=== PATIENT | male | born 1960 | race Caucasian/White ===

== ENCOUNTER 2019-09-05 11:57 | Emergency (ER) | payer OTHER ==
[~2019-09-05] VITALS: Ht 198.1 cm; Wt 153.3 kg
[2019-09-05 11:58] VITALS: BP 154/73
== END 2019-09-05 15:15 | disposition home or self-care (01) ==
LOC: ED 11:57
DX: I82.622 Acute embolism and thrombosis of deep veins of left upper extremity (principal); I10 Essential (primary) hypertension; E11.9 Type 2 diabetes mellitus without complications; Z86.718 Personal history of other venous thrombosis and embolism; Z88.8 Allergy status to other drugs, medicaments and biological substances; Z88.5 Allergy status to narcotic agent; Z88.6 Allergy status to analgesic agent

== ENCOUNTER 2021-03-13 13:42 | Inpatient (IN) | payer OTHER ==
[~2021-03-13] VITALS: Ht 198.1 cm; Wt 163.1 kg
[2021-03-13 13:52] VITALS: BP 157/90
[2021-03-13 14:18] LABS: BASO % 0.3 % (0.0-1.0); EOS # 0.1 10*3/uL (0.0-0.4); HEMATOCRIT 46.5 % (42.0-52.0); LYMPH # 1.4 10*3/uL (1.3-4.4); LYMPH % 10.8 % (27.0-41.0); MEAN CELL VOLUME 92.3 fl (80.0-94.0); MEAN CORPUSCULAR HGB 30.8 pg (27.0-31.0); MEAN CORPUSCULAR HGB CONC 33.3 g/dl (33.0-37.0); NEUT # 9.9 10*3/uL (2.3-7.9); NEUT % 79.4 % (47.0-73.0); PLATELET COUNT AUTOMATED 185 10*3/uL (130-400); RED BLOOD COUNT 5.04 10*6/uL (4.50-5.90); RED CELL DISTRI WIDTH 13.9 % (0-14.5); WHITE BLOOD COUNT 12.5 10*3/uL (4.8-10.8)
[2021-03-13 14:37] LABS: ALBUMIN 3.2 gm/dl (3.1-4.5); ALKALINE PHOSPHATASE 89 U/L (45-117); BUN 10 mg/dl (7-24); CHLORIDE 109 mmol/L (98-107); CREATININE 0.73 mg/dL (0.70-1.30); POTASSIUM 3.8 mmol/L (3.5-5.1); SGOT/AST 6 IU/L (3-35); SODIUM 139 mmol/L (136-145); TOTAL PROTEIN 6.7 gm/dL (6.4-8.2)
[2021-03-13 14:42] LABS: SGPT/ALT 18 U/L (12-78); TROPONIN I < 0.015 ng/ml (<0.045)
[2021-03-13] MEDS ORDERED: GLUCOPHAGE1000 MG PO (17:28)
[2021-03-13] MEDS ORDERED: FISH OIL 1,0001 EAC2 PO (17:30)
[2021-03-13] MEDS ORDERED: CELEBREX400 M1 PO (17:30)
[2021-03-13 17:40] VITALS: BP 154/88
[2021-03-13 20:00] VITALS: BP 127/81
[2021-03-13] MEDS ORDERED: CYMBALTA60 MG PO (22:15)
[2021-03-13] MEDS ORDERED: ZESTORETIC 20-1 EACH PO (22:16)
[2021-03-13] MEDS ORDERED: CLARITIN10 MG PO (22:17)
[2021-03-13] MEDS ORDERED: VITAMIN D350 MCG PO (22:17)
[2021-03-14] VITALS: BP 136/75
[2021-03-14 06:43] LABS: BASO # 0.1 10*3/uL (0.0-0.1); BASO % 0.6 % (0.0-1.0); EOS # 0.3 10*3/uL (0.0-0.4); EOS % 2.5 % (1.0-4.0); HEMATOCRIT 46.1 % (42.0-52.0); LYMPH # 2.2 10*3/uL (1.3-4.4); MEAN CELL VOLUME 92.9 fl (80.0-94.0); MEAN CORPUSCULAR HGB 30.8 pg (27.0-31.0); MEAN CORPUSCULAR HGB CONC 33.2 g/dl (33.0-37.0); MEAN PLATELET VOLUME 10.6 fl (9.6-12.3); MONO # 1.3 10*3/uL (0.1-1.0); MONO % 11.6 % (3.0-9.0); NEUT # 7.4 10*3/uL (2.3-7.9); NEUT % 65.5 % (47.0-73.0); PLATELET COUNT AUTOMATED 177 10*3/uL (130-400); RED BLOOD COUNT 4.96 10*6/uL (4.50-5.90); WHITE BLOOD COUNT 11.3 10*3/uL (4.8-10.8)
[2021-03-14 06:46] LABS: BUN 12 mg/dl (7-24); CHLORIDE 107 mmol/L (98-107); POTASSIUM 3.6 mmol/L (3.5-5.1); SODIUM 139 mmol/L (136-145)
[2021-03-14 06:59] LABS: CHOLESTEROL 91 mg/dL (<200); CREATININE 0.73 mg/dL (0.70-1.30); LDL CHOLESTEROL 43 mg/dL (9-159); TRIGLYCERIDES 105 mg/dl (<150)
[2021-03-14 07:59] LABS: VITAMIN D, 25-HYDROXY 32.8 ng/mL (30-100)
[2021-03-14 08:15] VITALS: BP 102/57
[2021-03-14 12:00] VITALS: BP 108/69
[2021-03-14] MEDS ORDERED: LISINOPRIL5 MG PO (15:02)
[2021-03-14] MEDS ORDERED: LOPRESSOR25 MG PO (15:02)
[2021-03-14] MEDS ORDERED: XARE20MG PO (15:02)
== END 2021-03-14 16:18 | disposition home or self-care (01) | DRG 308 ==
LOC: ED 13:42 → 5E 15:43 → EDHOLD 15:43 → 5E 16:35
PROVIDERS: Emergency Medicine; Internal Medicine; ADMIT Family Medicine; ATTEND Family Medicine
PROC: 4A02XM4 Measurement of Cardiac Total Activity, External Approach (ICD-10-PCS; principal; 2021-03-14)
PROC: 3E073KZ Introduction of Other Diagnostic Substance into Coronary Artery, Percutaneous Approach (ICD-10-PCS; 2021-03-14)
DX: I48.91 Unspecified atrial fibrillation (principal); I26.99 Other pulmonary embolism without acute cor pulmonale; R65.11 Systemic inflammatory response syndrome (SIRS) of non-infectious origin with acute organ dysfunction; Z68.41 Body mass index [BMI] 40.0-44.9, adult; E66.01 Morbid (severe) obesity due to excess calories; E11.65 Type 2 diabetes mellitus with hyperglycemia; Z88.6 Allergy status to analgesic agent; Z88.8 Allergy status to other drugs, medicaments and biological substances; Z82.49 Family history of ischemic heart disease and other diseases of the circulatory system; Z79.82 Long term (current) use of aspirin; Z79.899 Other long term (current) drug therapy; Z86.718 Personal history of other venous thrombosis and embolism; Z81.8 Family history of other mental and behavioral disorders

== ENCOUNTER 2021-03-31 02:22 | Emergency (ER) | payer OTHER ==
[~2021-03-31] VITALS: Wt 163.3 kg
[~2021-03-31 02:22] MED LIST: CELEBREX400 M1 PO; CLARITIN10 MG PO; CYMBALTA60 MG PO; FISH OIL 1,0001 EAC2 PO; GLUCOPHAGE1000 MG PO; LISINOPRIL5 MG PO; LOPRESSOR25 MG PO; VITAMIN D350 MCG PO; XARE20MG PO; ZESTORETIC 20-1 EACH PO
[2021-03-31] MEDS ORDERED: PREDNISONE20 M1 PO (03:11)
[2021-03-31 03:23] VITALS: BP 155/100
== END 2021-03-31 03:41 | disposition home or self-care (01) ==
LOC: ED 02:22
DX: M19.132 Post-traumatic osteoarthritis, left wrist (principal); T14.90XS Injury, unspecified, sequela; F17.200 Nicotine dependence, unspecified, uncomplicated; Z88.8 Allergy status to other drugs, medicaments and biological substances; Z79.899 Other long term (current) drug therapy; Z98.890 Other specified postprocedural states; Z88.6 Allergy status to analgesic agent; X58.XXXS Exposure to other specified factors, sequela

== ENCOUNTER 2021-08-02 05:23 | Emergency (ER) | payer OTHER ==
[~2021-08-02 05:23] MED LIST changes: +PREDNISONE20 M1 PO
[2021-08-02 05:38] VITALS: BP 95/61
== END 2021-08-02 05:52 | disposition home or self-care (01) ==
LOC: ED 05:23
DX: M19.031 Primary osteoarthritis, right wrist (principal); Z88.8 Allergy status to other drugs, medicaments and biological substances; Z79.899 Other long term (current) drug therapy

== ENCOUNTER 2022-08-25 14:43 | Emergency (ER) | payer MEDICARE ==
[~2022-08-25] VITALS: Wt 149.7 kg
[~2022-08-25 14:43] MED LIST changes: +TAMIFLU 75MG CA75 MG PO; +UNASYN 3 GM VIAL3 GM IV
[2022-08-25 14:52] VITALS: BP 136/89
[2022-08-25] MEDS ORDERED: PREDNISONE20 M1 PO (17:59)
== END 2022-08-25 18:16 | disposition home or self-care (01) ==
LOC: ED 14:43
DX: M12.532 Traumatic arthropathy, left wrist (principal); Z88.8 Allergy status to other drugs, medicaments and biological substances; Z98.890 Other specified postprocedural states; F17.200 Nicotine dependence, unspecified, uncomplicated; F10.20 Alcohol dependence, uncomplicated

== ENCOUNTER → 2023-01-07 | Day surgery (SDC) | payer OTHER ==
[~2023-01-07] VITALS: Ht 198.1 cm; Wt 149.7 kg
[2023-01-07 08:26] VITALS: BP 113/89
[2023-01-07 09:32] VITALS: BP 133/67
[2023-01-07 09:47] VITALS: BP 122/55
[2023-01-07 10:01] VITALS: BP 121/63
[2023-01-07 14:29] VITALS: BP 133/67
== END | disposition home or self-care (01) ==
LOC: SDC 01-05 08:00
PROVIDERS: ATTEND Surgery
DX: Z12.11 Encounter for screening for malignant neoplasm of colon (principal); K57.30 Diverticulosis of large intestine without perforation or abscess without bleeding; K29.50 Unspecified chronic gastritis without bleeding; K21.9 Gastro-esophageal reflux disease without esophagitis; I10 Essential (primary) hypertension; E11.9 Type 2 diabetes mellitus without complications; F17.210 Nicotine dependence, cigarettes, uncomplicated; E78.00 Pure hypercholesterolemia, unspecified; Z79.899 Other long term (current) drug therapy

== ENCOUNTER 2023-02-16 14:10 | Inpatient (IN) | payer OTHER ==
[~2023-02-16] VITALS: Ht 198.1 cm; Wt 152.5 kg
[~2023-02-16 14:10] MED LIST changes: +ATORVASTATIN CA40 M1 PO; +LANTUS SOL100 UNIT/1 SQ; +NOVOLOG100 UNIT/1 SQ; +OZEMPIC2 MG/0.71 SQ; +TORSEMIDE20 MG PO
[2023-02-16 14:17] VITALS: BP 96/61
[2023-02-16 14:56] LABS: BASO # 0.1 10*3/uL (0.0-0.1); BASO % 0.4 % (0.0-1.0); EOS # 0.1 10*3/uL (0.0-0.4); EOS % 0.6 % (1.0-4.0); HEMATOCRIT 50.3 % (42.0-52.0); LYMPH # 2.3 10*3/uL (1.3-4.4); LYMPH % 11.1 % (27.0-41.0); MEAN CELL VOLUME 89.3 fl (80.0-94.0); MEAN CORPUSCULAR HGB 31.1 pg (27.0-31.0); MEAN CORPUSCULAR HGB CONC 34.8 g/dl (33.0-37.0); MONO # 1.2 10*3/uL (0.1-1.0); MONO % 5.7 % (3.0-9.0); NEUT # 16.8 10*3/uL (2.3-7.9); NEUT % 81.6 % (47.0-73.0); PLATELET COUNT AUTOMATED 258 10*3/uL (130-400); RED BLOOD COUNT 5.63 10*6/uL (4.50-5.90); RED CELL DISTRI WIDTH 13.1 % (0-14.5); WHITE BLOOD COUNT 20.5 10*3/uL (4.8-10.8)
[2023-02-16 15:07] LABS: ACT PARTIAL THROMBO TIME 26.8 SECONDS (20.0-32.1)
[2023-02-16 15:19] LABS: ALKALINE PHOSPHATASE 83 U/L (46-116); BUN 17 mg/dl (9-23); CHLORIDE 100 mmol/L (98-107); LIPASE 33 U/L (12-53); POTASSIUM 3.3 mmol/L (3.4-5.1); SGPT/ALT 12 U/L (10-49); TOTAL PROTEIN 7.4 gm/dL (6.0-8.0)
[2023-02-16 17:00] VITALS: BP 92/61
[2023-02-16 18:05] VITALS: BP 107/62
[2023-02-16 20:16] VITALS: BP 110/73
[2023-02-17] VITALS (11 sets, daily range): BP systolic 98–139; BP diastolic 47–87
[2023-02-17 05:37] LABS: ALKALINE PHOSPHATASE 70 U/L (46-116); BUN 14 mg/dl (9-23); CHLORIDE 108 mmol/L (98-107); CHOLESTEROL 83 mg/dL (<200); LDL CHOLESTEROL 36 mg/dL (9-159); POTASSIUM 3.1 mmol/L (3.4-5.1); TOTAL PROTEIN 5.8 gm/dL (6.0-8.0); TRIGLYCERIDES 133 mg/dl (<150)
[2023-02-17 06:01] LABS: SGPT/ALT < 7 U/L (10-49)
[2023-02-17 06:26] LABS: BASO # 0.1 10*3/uL (0.0-0.1); BASO % 0.5 % (0.0-1.0); EOS # 0.2 10*3/uL (0.0-0.4); EOS % 1.5 % (1.0-4.0); HEMATOCRIT 42.2 % (42.0-52.0); LYMPH # 2.9 10*3/uL (1.3-4.4); LYMPH % 17.5 % (27.0-41.0); MEAN CELL VOLUME 91.7 fl (80.0-94.0); MEAN CORPUSCULAR HGB CONC 34.8 g/dl (33.0-37.0); MEAN PLATELET VOLUME 10.6 fl (9.6-12.3); MONO # 1.3 10*3/uL (0.1-1.0); NEUT # 11.8 10*3/uL (2.3-7.9); NEUT % 71.7 % (47.0-73.0); PLATELET COUNT AUTOMATED 209 10*3/uL (130-400); RED CELL DISTRI WIDTH 13.2 % (0-14.5); WHITE BLOOD COUNT 16.4 10*3/uL (4.8-10.8)
[2023-02-18] VITALS: BP 103/67
[2023-02-18 04:00] VITALS: BP 152/88
[2023-02-18 07:35] LABS: BASO % 0.3 % (0.0-1.0); EOS # 0.1 10*3/uL (0.0-0.4); EOS % 0.5 % (1.0-4.0); HEMATOCRIT 39.5 % (42.0-52.0); LYMPH # 1.8 10*3/uL (1.3-4.4); LYMPH % 11.5 % (27.0-41.0); MEAN CELL VOLUME 90.6 fl (80.0-94.0); MEAN CORPUSCULAR HGB 31.7 pg (27.0-31.0); MEAN CORPUSCULAR HGB CONC 34.9 g/dl (33.0-37.0); MONO # 0.9 10*3/uL (0.1-1.0); MONO % 5.8 % (3.0-9.0); NEUT # 12.8 10*3/uL (2.3-7.9); NEUT % 81.5 % (47.0-73.0); PLATELET COUNT AUTOMATED 198 10*3/uL (130-400); RED BLOOD COUNT 4.36 10*6/uL (4.50-5.90); WHITE BLOOD COUNT 15.8 10*3/uL (4.8-10.8)
[2023-02-18 08:00] VITALS: BP 105/63
[2023-02-18 08:01] LABS: BUN 11 mg/dl (9-23); CHLORIDE 107 mmol/L (98-107); POTASSIUM 3.6 mmol/L (3.4-5.1)
[2023-02-18 09:07] LABS: ACID FAST SPEC PROCESSING Tissue Grinding (.)
[2023-02-18 12:00] VITALS: BP 133/63
[2023-02-18 16:00] VITALS: BP 151/71
[2023-02-18 20:00] VITALS: BP 152/79
[2023-02-19] VITALS: BP 133/78
[2023-02-19 06:10] LABS: BASO # 0.1 10*3/uL (0.0-0.1); BASO % 0.4 % (0.0-1.0); EOS # 0.2 10*3/uL (0.0-0.4); EOS % 1.6 % (1.0-4.0); HEMATOCRIT 38.8 % (42.0-52.0); LYMPH # 2.7 10*3/uL (1.3-4.4); MEAN CELL VOLUME 90.9 fl (80.0-94.0); MEAN CORPUSCULAR HGB 31.9 pg (27.0-31.0); MEAN CORPUSCULAR HGB CONC 35.1 g/dl (33.0-37.0); MEAN PLATELET VOLUME 10.4 fl (9.6-12.3); MONO % 7.5 % (3.0-9.0); NEUT # 9.5 10*3/uL (2.3-7.9); NEUT % 70.1 % (47.0-73.0); PLATELET COUNT AUTOMATED 206 10*3/uL (130-400); RED BLOOD COUNT 4.27 10*6/uL (4.50-5.90); WHITE BLOOD COUNT 13.5 10*3/uL (4.8-10.8)
[2023-02-19 07:40] LABS: BUN 10 mg/dl (9-23); CHLORIDE 107 mmol/L (98-107); POTASSIUM 3.5 mmol/L (3.4-5.1)
[2023-02-19 08:00] VITALS: BP 124/91
[2023-02-19 12:00] VITALS: BP 160/90
[2023-02-19] MEDS ORDERED: METRONIDAZOLE500 M1 PO (12:01)
[2023-02-19] MEDS ORDERED: SEPTDS PO (12:01)
[2023-02-19] MEDS ORDERED: MAGNESIUM OXID400 MG PO (12:08)
[2023-02-19] MEDS ORDERED: HYDROCODONE-AC1 EAC1 PO (12:08)
[2023-02-19] MEDS ORDERED: LOPRESSOR25 MG PO (12:08)
== END 2023-02-19 12:58 | disposition home or self-care (01) | DRG 854 ==
LOC: ED 14:10 → EDHOLD 17:43 → 4E 17:43 → ICCU 02-17 13:13 → 4E 02-18 07:33
PROVIDERS: Emergency Medicine; Internal Medicine; Registered Nurse; Surgery; ADMIT Family Medicine; ATTEND Family Medicine
PROC: 0D9P0ZZ Drainage of Rectum, Open Approach (ICD-10-PCS; principal; 2023-02-17)
PROC: 5A09357 Assistance with Respiratory Ventilation, Less than 24 Consecutive Hours, Continuous Positive Airway Pressure (ICD-10-PCS; 2023-02-18)
DX: A41.9 Sepsis, unspecified organism (principal); E87.20 Acidosis, unspecified; K61.1 Rectal abscess; I50.32 Chronic diastolic (congestive) heart failure; R65.20 Severe sepsis without septic shock; E83.42 Hypomagnesemia; I48.91 Unspecified atrial fibrillation; I95.9 Hypotension, unspecified; E11.65 Type 2 diabetes mellitus with hyperglycemia; E78.5 Hyperlipidemia, unspecified; E87.6 Hypokalemia; Z88.5 Allergy status to narcotic agent; Z88.8 Allergy status to other drugs, medicaments and biological substances; Z79.4 Long term (current) use of insulin; Z82.0 Family history of epilepsy and other diseases of the nervous system; Z79.84 Long term (current) use of oral hypoglycemic drugs; Z79.899 Other long term (current) drug therapy

== ENCOUNTER → 2023-03-05 | Outpatient (CLI) | payer OTHER ==
[~2023-03-05] MED LIST changes: +HYDROCODONE-AC1 EAC1 PO; +MAGNESIUM OXID400 MG PO; +METRONIDAZOLE500 M1 PO; +SEPTDS PO
== END | disposition home or self-care (01) ==
LOC: WOUNDCARE 00:23
PROVIDERS: ATTEND Nurse Practitioner Family
DX: T81.89XD Other complications of procedures, not elsewhere classified, subsequent encounter (principal); K61.1 Rectal abscess; E11.65 Type 2 diabetes mellitus with hyperglycemia; I48.91 Unspecified atrial fibrillation; I11.0 Hypertensive heart disease with heart failure; I50.9 Heart failure, unspecified; E78.5 Hyperlipidemia, unspecified; F17.290 Nicotine dependence, other tobacco product, uncomplicated; Z86.718 Personal history of other venous thrombosis and embolism; Z86.711 Personal history of pulmonary embolism; Y83.8 Other surgical procedures as the cause of abnormal reaction of the patient, or of later complication, without mention of misadventure at the time of the procedure

== ENCOUNTER → 2023-03-10 | Outpatient (CLI) | payer OTHER | END | disposition home or self-care (01) | LOC: WOUNDCARE 01:41 | PROVIDERS: ATTEND Nurse Practitioner Primary Care | DX: T81.89XD Other complications of procedures, not elsewhere classified, subsequent encounter (principal); K61.1 Rectal abscess; E11.65 Type 2 diabetes mellitus with hyperglycemia; E78.5 Hyperlipidemia, unspecified; I48.91 Unspecified atrial fibrillation; I11.0 Hypertensive heart disease with heart failure; I50.9 Heart failure, unspecified; F17.290 Nicotine dependence, other tobacco product, uncomplicated; Z86.718 Personal history of other venous thrombosis and embolism; Z86.711 Personal history of pulmonary embolism; Y83.8 Other surgical procedures as the cause of abnormal reaction of the patient, or of later complication, without mention of misadventure at the time of the procedure ==

== ENCOUNTER 2023-03-16 15:41 | Inpatient (IN) | payer OTHER ==
[~2023-03-16] VITALS: Ht 198.1 cm; Wt 145.2 kg
[~2023-03-16 15:41] MED LIST changes: -CIPROFLOXACIN250 MG PO; -HYDROCODONE-AC1 EACH PO
[2023-03-16 16:08] VITALS: BP 100/60
[2023-03-16 17:08] LABS: BASO % 0.4 % (0.0-1.0); EOS # 0.1 10*3/uL (0.0-0.4); EOS % 0.8 % (1.0-4.0); HEMATOCRIT 46.3 % (42.0-52.0); LYMPH # 1.1 10*3/uL (1.3-4.4); LYMPH % 10.2 % (27.0-41.0); MEAN CELL VOLUME 88.7 fl (80.0-94.0); MEAN CORPUSCULAR HGB CONC 36.1 g/dl (33.0-37.0); MEAN PLATELET VOLUME 9.8 fl (9.6-12.3); MONO # 0.9 10*3/uL (0.1-1.0); MONO % 8.4 % (3.0-9.0); NEUT # 8.7 10*3/uL (2.3-7.9); NEUT % 79.7 % (47.0-73.0); PLATELET COUNT AUTOMATED 197 10*3/uL (130-400); RED BLOOD COUNT 5.22 10*6/uL (4.50-5.90); WHITE BLOOD COUNT 10.9 10*3/uL (4.8-10.8)
[2023-03-16 17:20] LABS: BILIRUBIN 2+ (Negative); BLOOD 3+ (Negative); CLARITY Turbid (Clear); COLOR Orange (Yellow); GLUCOSE Trace (Negative); KETONE Trace (Negative); LEUKO ESTERASE 2+ (Negative); NITRITE Positive (Negative); SPECIFIC GRAVITY 1.025 (1.001-1.030)
[2023-03-16 17:28] LABS: WBC TNTC wbc/hpf (0-5)
[2023-03-16 17:29] LABS: BACTERIA 3+
[2023-03-16 17:29] LABS: ALKALINE PHOSPHATASE 76 U/L (46-116); BUN 11 mg/dl (9-23); CHLORIDE 102 mmol/L (98-107); POTASSIUM 3.1 mmol/L (3.4-5.1); SGPT/ALT 11 U/L (10-49); TOTAL PROTEIN 6.8 gm/dL (6.0-8.0)
[2023-03-16 19:48] VITALS: BP 124/98
[2023-03-16 20:52] VITALS: BP 94/65
[2023-03-16 21:53] VITALS: BP 103/61
[2023-03-16 22:15] VITALS: BP 111/67
[2023-03-16] MEDS ORDERED: HYDROCODONE-AC1 EACH PO (22:32)
[2023-03-17 06:36] LABS: BASO # 0.1 10*3/uL (0.0-0.1); BASO % 0.5 % (0.0-1.0); EOS # 0.3 10*3/uL (0.0-0.4); EOS % 2.8 % (1.0-4.0); HEMATOCRIT 44.3 % (42.0-52.0); LYMPH # 2.2 10*3/uL (1.3-4.4); LYMPH % 23.5 % (27.0-41.0); MEAN CELL VOLUME 91.3 fl (80.0-94.0); MEAN CORPUSCULAR HGB 31.8 pg (27.0-31.0); MEAN CORPUSCULAR HGB CONC 34.8 g/dl (33.0-37.0); MEAN PLATELET VOLUME 9.6 fl (9.6-12.3); MONO # 1.1 10*3/uL (0.1-1.0); MONO % 11.5 % (3.0-9.0); NEUT # 5.8 10*3/uL (2.3-7.9); NEUT % 61.2 % (47.0-73.0); PLATELET COUNT AUTOMATED 193 10*3/uL (130-400); RED BLOOD COUNT 4.85 10*6/uL (4.50-5.90); RED CELL DISTRI WIDTH 14.2 % (0-14.5); WHITE BLOOD COUNT 9.4 10*3/uL (4.8-10.8)
[2023-03-17 06:47] LABS: ACT PARTIAL THROMBO TIME 27.1 SECONDS (20.0-32.1)
[2023-03-17 06:54] LABS: ALKALINE PHOSPHATASE 70 U/L (46-116); BUN 11 mg/dl (9-23); CHLORIDE 101 mmol/L (98-107); CHOLESTEROL 103 mg/dL (<200); FREE T4 1.08 ng/dl (0.89-1.76); POTASSIUM 3.5 mmol/L (3.4-5.1); SGPT/ALT 11 U/L (10-49); TOTAL PROTEIN 6.4 gm/dL (6.0-8.0); TRIGLYCERIDES 160 mg/dl (<150)
[2023-03-17 06:56] LABS: LDL CHOLESTEROL 55 mg/dL (9-159)
[2023-03-17 07:19] LABS: VITAMIN D, 25-HYDROXY 38.9 ng/mL (30-100)
[2023-03-17 08:00] VITALS: BP 114/71
[2023-03-17 12:00] VITALS: BP 110/64
[2023-03-17 16:00] VITALS: BP 135/56
[2023-03-17 20:00] VITALS: BP 142/61
[2023-03-18] VITALS: BP 123/76
[2023-03-18 06:19] LABS: BASO # 0.1 10*3/uL (0.0-0.1); BASO % 0.6 % (0.0-1.0); EOS # 0.2 10*3/uL (0.0-0.4); EOS % 2.3 % (1.0-4.0); HEMATOCRIT 42.9 % (42.0-52.0); LYMPH # 2.7 10*3/uL (1.3-4.4); MEAN CELL VOLUME 92.1 fl (80.0-94.0); MEAN CORPUSCULAR HGB 31.8 pg (27.0-31.0); MEAN CORPUSCULAR HGB CONC 34.5 g/dl (33.0-37.0); MEAN PLATELET VOLUME 9.8 fl (9.6-12.3); MONO % 10.4 % (3.0-9.0); NEUT # 5.6 10*3/uL (2.3-7.9); NEUT % 58.1 % (47.0-73.0); PLATELET COUNT AUTOMATED 202 10*3/uL (130-400); RED BLOOD COUNT 4.66 10*6/uL (4.50-5.90); RED CELL DISTRI WIDTH 13.8 % (0-14.5); WHITE BLOOD COUNT 9.6 10*3/uL (4.8-10.8)
[2023-03-18 06:32] LABS: BUN 11 mg/dl (9-23); CHLORIDE 103 mmol/L (98-107); POTASSIUM 4.2 mmol/L (3.4-5.1)
[2023-03-18 08:00] VITALS: BP 116/71
[2023-03-18 16:00] VITALS: BP 138/62
[2023-03-18 20:00] VITALS: BP 111/70
[2023-03-19] VITALS: BP 122/61
[2023-03-19 06:15] LABS: BASO # 0.1 10*3/uL (0.0-0.1); BASO % 0.6 % (0.0-1.0); EOS # 0.2 10*3/uL (0.0-0.4); HEMATOCRIT 42.9 % (42.0-52.0); LYMPH # 2.2 10*3/uL (1.3-4.4); LYMPH % 24.9 % (27.0-41.0); MEAN CELL VOLUME 89.6 fl (80.0-94.0); MEAN CORPUSCULAR HGB 32.2 pg (27.0-31.0); MEAN CORPUSCULAR HGB CONC 35.9 g/dl (33.0-37.0); MEAN PLATELET VOLUME 9.5 fl (9.6-12.3); MONO # 0.6 10*3/uL (0.1-1.0); NEUT # 5.8 10*3/uL (2.3-7.9); NEUT % 64.9 % (47.0-73.0); PLATELET COUNT AUTOMATED 196 10*3/uL (130-400); RED BLOOD COUNT 4.79 10*6/uL (4.50-5.90); RED CELL DISTRI WIDTH 13.3 % (0-14.5)
[2023-03-19 06:36] LABS: BUN 9 mg/dl (9-23); CHLORIDE 105 mmol/L (98-107); POTASSIUM 4.3 mmol/L (3.4-5.1)
[2023-03-19 08:00] VITALS: BP 144/77
[2023-03-19] MEDS ORDERED: LANTUS SOL100 UNIT/1 SQ (11:21)
[2023-03-19] MEDS ORDERED: CIPROFLOXACIN250 MG PO (11:23)
[2023-03-19 12:00] VITALS: BP 151/60
== END 2023-03-19 12:21 | disposition home or self-care (01) | DRG 312 ==
LOC: ED 15:41 → 4E 19:53 → EDHOLD 19:53 → 4E 21:26
PROVIDERS: Internal Medicine; Student in an Organized Health Care Education/Training Program; ADMIT Internal Medicine; ATTEND Internal Medicine
DX: I95.1 Orthostatic hypotension (principal); N39.0 Urinary tract infection, site not specified; E44.0 Moderate protein-calorie malnutrition; K61.1 Rectal abscess; I50.22 Chronic systolic (congestive) heart failure; E87.6 Hypokalemia; E83.42 Hypomagnesemia; E78.2 Mixed hyperlipidemia; R31.9 Hematuria, unspecified; E11.65 Type 2 diabetes mellitus with hyperglycemia; I11.0 Hypertensive heart disease with heart failure; E66.9 Obesity, unspecified; B96.1 Klebsiella pneumoniae [K. pneumoniae] as the cause of diseases classified elsewhere; G47.37 Central sleep apnea in conditions classified elsewhere; J30.2 Other seasonal allergic rhinitis; F17.210 Nicotine dependence, cigarettes, uncomplicated; R00.1 Bradycardia, unspecified; Z71.6 Tobacco abuse counseling; Z79.4 Long term (current) use of insulin; Z86.718 Personal history of other venous thrombosis and embolism; Z88.5 Allergy status to narcotic agent; Z88.8 Allergy status to other drugs, medicaments and biological substances; Z79.1 Long term (current) use of non-steroidal anti-inflammatories (NSAID); Z79.84 Long term (current) use of oral hypoglycemic drugs; Z79.899 Other long term (current) drug therapy; Z68.37 Body mass index [BMI] 37.0-37.9, adult

== ENCOUNTER → 2023-03-16 | Outpatient (CLI) | payer OTHER ==
[~2023-03-16] MED LIST changes: +CIPROFLOXACIN250 MG PO; +HYDROCODONE-AC1 EACH PO
== END ==
LOC: WOUNDCARE 00:14
PROVIDERS: ATTEND Nurse Practitioner Family
DX: Z53.21 Procedure and treatment not carried out due to patient leaving prior to being seen by health care provider (principal)

== ENCOUNTER → 2023-04-01 | Outpatient (CLI) | payer OTHER ==
[~2023-04-01] MED LIST changes: +CIPROFLOXACIN250 MG PO; +HYDROCODONE-AC1 EACH PO
== END | disposition home or self-care (01) ==
LOC: WOUNDCARE 02:20
PROVIDERS: ATTEND Nurse Practitioner Family
DX: T81.89XD Other complications of procedures, not elsewhere classified, subsequent encounter (principal); K61.1 Rectal abscess; E11.65 Type 2 diabetes mellitus with hyperglycemia; E78.5 Hyperlipidemia, unspecified; I48.91 Unspecified atrial fibrillation; I11.0 Hypertensive heart disease with heart failure; I50.9 Heart failure, unspecified; F17.290 Nicotine dependence, other tobacco product, uncomplicated; Z86.718 Personal history of other venous thrombosis and embolism; Z86.711 Personal history of pulmonary embolism; Y83.8 Other surgical procedures as the cause of abnormal reaction of the patient, or of later complication, without mention of misadventure at the time of the procedure

== ENCOUNTER → 2023-04-15 | Outpatient (CLI) | payer OTHER | END | disposition home or self-care (01) | LOC: WOUNDCARE 00:52 | PROVIDERS: ATTEND Nurse Practitioner Primary Care | DX: T81.89XD Other complications of procedures, not elsewhere classified, subsequent encounter (principal); K61.1 Rectal abscess; E11.65 Type 2 diabetes mellitus with hyperglycemia; I48.91 Unspecified atrial fibrillation; I11.0 Hypertensive heart disease with heart failure; I50.9 Heart failure, unspecified; E78.5 Hyperlipidemia, unspecified; F17.290 Nicotine dependence, other tobacco product, uncomplicated; Z86.718 Personal history of other venous thrombosis and embolism; Z86.711 Personal history of pulmonary embolism; Y83.8 Other surgical procedures as the cause of abnormal reaction of the patient, or of later complication, without mention of misadventure at the time of the procedure ==

== ENCOUNTER 2023-12-10 03:10 | Inpatient (IN) | payer OTHER ==
[~2023-12-10] VITALS: Ht 198.1 cm; Wt 139.8 kg
[2023-12-10] VITALS (8 sets, daily range): BP systolic 95–152; BP diastolic 53–94
[~2023-12-10 03:10] MED LIST changes: -GLUCOPHAGE1000 MG PO; +LANTUS SOL100 UNIT/1 SC; +LEVOFLOXACIN750 M2 PO; +METFORMIN HCL1000 M1 PO; +ZESTRIL20 MG PO
[2023-12-10 03:52] LABS: BASO # 0.1 10*3/uL (0.0-0.1); BASO % 0.6 % (0.0-1.0); EOS # 0.3 10*3/uL (0.0-0.4); EOS % 2.1 % (1.0-4.0); HEMATOCRIT 44.2 % (42.0-52.0); LYMPH # 2.3 10*3/uL (1.3-4.4); LYMPH % 18.8 % (27.0-41.0); MEAN CELL VOLUME 88.2 fl (80.0-94.0); MEAN CORPUSCULAR HGB 28.7 pg (27.0-31.0); MEAN CORPUSCULAR HGB CONC 32.6 g/dl (33.0-37.0); MEAN PLATELET VOLUME 10.2 fl (9.6-12.3); MONO # 0.9 10*3/uL (0.1-1.0); MONO % 7.4 % (3.0-9.0); NEUT # 8.5 10*3/uL (2.3-7.9); NEUT % 70.7 % (47.0-73.0); PLATELET COUNT AUTOMATED 183 10*3/uL (130-400); RED BLOOD COUNT 5.01 10*6/uL (4.50-5.90); RED CELL DISTRI WIDTH 14.6 % (0-14.5); WHITE BLOOD COUNT 12.1 10*3/uL (4.8-10.8)
[2023-12-10 04:14] LABS: ALKALINE PHOSPHATASE 99 U/L (46-116); BUN 7 mg/dl (9-23); CHLORIDE 106 mmol/L (98-107); LIPASE 47 U/L (12-53); POTASSIUM 3.3 mmol/L (3.4-5.1); SGPT/ALT 7 U/L (5-49); TOTAL PROTEIN 6.5 gm/dL (6.0-8.0)
[2023-12-10] MEDS ORDERED: FUROSEMIDE 40 MG/4 ML VIAL IV ONE (04:50)
[2023-12-10] MEDS ORDERED: POTASSIUM CHLORIDE 20 MEQ TAB PO ONE (06:30)
[2023-12-10] MEDS ORDERED: TEMAZEPAM 15 MG CAP PO PRN (07:35)
[2023-12-10] MEDS ORDERED: ACETAMINOPHEN 325 MG TAB PO PRN (07:35)
[2023-12-10] MEDS ORDERED: Ondansetron Hydrochloride 4 MG/2 ML VIAL IV PRN (07:35)
[2023-12-10] MEDS ORDERED: BISACODYL 5 MG TAB PO PRN (07:35)
[2023-12-10] MEDS ORDERED: Acetaminophen/Hydrocodone 5 MG/325 MG TABLET PO PRN (07:35)
[2023-12-10] MEDS ORDERED: DEXTROSE 10 % IN WATER 250 ML IV PRN (07:45)
[2023-12-10 08:23] LABS: BILIRUBIN Negative (Negative); BLOOD Negative (Negative); CLARITY Clear (Clear); COLOR Yellow (Yellow); GLUCOSE 3+ (Negative); KETONE Negative (Negative); LEUKO ESTERASE Trace (Negative); NITRITE Negative (Negative); UROBILINOGEN 0.2 E.U./dl (0.0-1.0)
[2023-12-10 08:39] LABS: RBC 0-2 rbc/hpf (0-2)
[2023-12-10] MEDS ORDERED: RIVAROXABAN 20 MG TAB PO SCH (10:00)
[2023-12-10] MEDS ORDERED: INSULIN LISPRO 1 UNIT/0.01 ML SQ SCH (11:30)
[2023-12-10] MEDS ORDERED: JARDIANCE25 MG PO (13:11)
[2023-12-10] MEDS ORDERED: LISINOPRIL-HCT1 EACH PO (13:11)
[2023-12-10] MEDS ORDERED: Cholecalciferol 2,000 UNIT TABLET (50 MCG) PO SCH (13:50)
[2023-12-10] MEDS ORDERED: Fish Oil 500 MG CAP PO SCH (18:00)
[2023-12-10] MEDS ORDERED: ATORVASTATIN CALCIUM 40 MG TABLET PO SCH (18:00)
[2023-12-10] MEDS ORDERED: FUROSEMIDE 40 MG/4 ML VIAL IV SCH (18:00)
[2023-12-10] MEDS ORDERED: MAGNESIUM OXIDE 400 MG TAB PO SCH (18:00)
[2023-12-10] MEDS ORDERED: Insulin Glargine, Recombinan 1 UNIT/0.01 ML SC SCH (22:00)
[2023-12-11] VITALS: BP 92/58
[2023-12-11] MEDS ORDERED: Pantoprazole Sodium 40 MG TAB PO SCH (06:00)
[2023-12-11 06:44] LABS: BASO # 0.1 10*3/uL (0.0-0.1); BASO % 0.6 % (0.0-1.0); EOS # 0.3 10*3/uL (0.0-0.4); HEMATOCRIT 45.9 % (42.0-52.0); LYMPH # 2.4 10*3/uL (1.3-4.4); LYMPH % 18.1 % (27.0-41.0); MEAN CELL VOLUME 86.9 fl (80.0-94.0); MEAN CORPUSCULAR HGB 28.2 pg (27.0-31.0); MEAN CORPUSCULAR HGB CONC 32.5 g/dl (33.0-37.0); MEAN PLATELET VOLUME 10.7 fl (9.6-12.3); MONO # 1.2 10*3/uL (0.1-1.0); MONO % 9.2 % (3.0-9.0); NEUT % 69.6 % (47.0-73.0); PLATELET COUNT AUTOMATED 206 10*3/uL (130-400); RED BLOOD COUNT 5.28 10*6/uL (4.50-5.90); RED CELL DISTRI WIDTH 14.8 % (0-14.5)
[2023-12-11 06:54] VITALS: BP 99/55
[2023-12-11 07:13] LABS: ALKALINE PHOSPHATASE 98 U/L (46-116); BUN 12 mg/dl (9-23); CHLORIDE 103 mmol/L (98-107); CHOLESTEROL 86 mg/dL (<200); LDL CHOLESTEROL 45 mg/dL (9-159); POTASSIUM 3.4 mmol/L (3.4-5.1); TOTAL PROTEIN 6.7 gm/dL (6.0-8.0); TRIGLYCERIDES 104 mg/dl (<150)
[2023-12-11 07:23] LABS: SGPT/ALT < 7 U/L (5-49)
[2023-12-11 08:23] VITALS: BP 100/60
[2023-12-11] MEDS ORDERED: EMPAGLIFLOZIN 10 MG TABLET PO SCH (10:00)
[2023-12-11] MEDS ORDERED: Duloxetine Hydrochloride 60 MG CAP PO SCH (10:00)
[2023-12-11] MEDS ORDERED: LISINOPRIL 20 MG TAB PO SCH (10:00)
[2023-12-11] MEDS ORDERED: LORATADINE 10 MG TAB PO SCH (10:00)
[2023-12-11] MEDS ORDERED: EMPAGLIFLOZIN 25 MG TABLET PO SCH (10:00)
[2023-12-11] MEDS ORDERED: METOLAZONE 5 MG TAB PO ONE (10:20)
[2023-12-11 12:00] VITALS: BP 140/83
[2023-12-11 16:00] VITALS: BP 160/93
[2023-12-11 20:00] VITALS: BP 109/76
[2023-12-12] VITALS: BP 138/90
[2023-12-12 08:00] VITALS: BP 101/70
[2023-12-12] MEDS ORDERED: METOLAZONE 5 MG TAB PO ONE (11:25)
[2023-12-12] MEDS ORDERED: LISINOPRIL20 MG PO (11:46)
[2023-12-12 12:00] VITALS: BP 106/52
[2023-12-12 12:07] LABS: BUN 18 mg/dl (9-23); CHLORIDE 95 mmol/L (98-107); POTASSIUM 3.3 mmol/L (3.4-5.1)
[2023-12-12] MEDS ORDERED: K-TAB20 MEQ PO (13:15)
[2023-12-12] MEDS ORDERED: POTASSIUM CHLORIDE 20 MEQ TAB PO ONE (13:15)
[2023-12-12] MEDS ORDERED: SODIUM CHLORIDE 0.9% 500 ML IV ONE (15:05)
[2023-12-12 16:00] VITALS: BP 101/50
[2023-12-13] MEDS ORDERED: EMPAGLIFLOZIN 10 MG TABLET PO SCH (10:00)
[2023-12-13] MEDS ORDERED: METOPROLOL TART50 M1 PO (15:58)
[2023-12-13] MEDS ORDERED: HYDR25T PO (15:59)
[2023-12-13] MEDS ORDERED: OZEMPIC1 MG/0.71 SQ (16:02)
[2023-12-13] MEDS ORDERED: VIBRAMYCIN100 MG PO (17:20)
[2023-12-13] MEDS ORDERED: ONDANSETRON4 MG SL (17:46)
== END 2023-12-12 17:18 | disposition home or self-care (01) | DRG 291 ==
LOC: ED 03:10 → EDHOLD 06:31 → 4E 06:31
PROVIDERS: Internal Medicine; Student in an Organized Health Care Education/Training Program; ADMIT Family Medicine; ATTEND Family Medicine
DX: I11.0 Hypertensive heart disease with heart failure (principal); I50.33 Acute on chronic diastolic (congestive) heart failure; R65.10 Systemic inflammatory response syndrome (SIRS) of non-infectious origin without acute organ dysfunction; E87.20 Acidosis, unspecified; E44.0 Moderate protein-calorie malnutrition; I48.19 Other persistent atrial fibrillation; E87.6 Hypokalemia; G47.30 Sleep apnea, unspecified; E78.5 Hyperlipidemia, unspecified; F17.210 Nicotine dependence, cigarettes, uncomplicated; E11.65 Type 2 diabetes mellitus with hyperglycemia; E66.9 Obesity, unspecified; J30.2 Other seasonal allergic rhinitis; I44.7 Left bundle-branch block, unspecified; E66.01 Morbid (severe) obesity due to excess calories; I48.0 Paroxysmal atrial fibrillation; Z88.8 Allergy status to other drugs, medicaments and biological substances; Z91.09 Other allergy status, other than to drugs and biological substances; Z79.899 Other long term (current) drug therapy; Z68.36 Body mass index [BMI] 36.0-36.9, adult; Z79.01 Long term (current) use of anticoagulants; Z86.718 Personal history of other venous thrombosis and embolism; Z86.711 Personal history of pulmonary embolism; Z79.2 Long term (current) use of antibiotics; Z82.49 Family history of ischemic heart disease and other diseases of the circulatory system; Z82.0 Family history of epilepsy and other diseases of the nervous system

== ENCOUNTER 2023-12-13 15:35 | Emergency (ER) | payer OTHER ==
[~2023-12-13] VITALS: Ht 198.1 cm; Wt 138.3 kg
[~2023-12-13 15:35] MED LIST changes: +JARDIANCE25 MG PO; +K-TAB20 MEQ PO; +LISINOPRIL-HCT1 EACH PO; +LISINOPRIL20 MG PO
[2023-12-13] MEDS ORDERED: SODIUM CHLORIDE 0.9% 1,000 ML IV ONE (15:40)
[2023-12-13] MEDS ORDERED: Ondansetron Hydrochloride 4 MG/2 ML VIAL IV ONE (15:50)
[2023-12-13 15:54] LABS: BASO # 0.1 10*3/uL (0.0-0.1); BASO % 0.5 % (0.0-1.0); EOS # 0.1 10*3/uL (0.0-0.4); EOS % 0.5 % (1.0-4.0); HEMATOCRIT 53.3 % (42.0-52.0); LYMPH # 2.1 10*3/uL (1.3-4.4); LYMPH % 12.5 % (27.0-41.0); MEAN CELL VOLUME 84.6 fl (80.0-94.0); MEAN CORPUSCULAR HGB 28.3 pg (27.0-31.0); MEAN CORPUSCULAR HGB CONC 33.4 g/dl (33.0-37.0); MEAN PLATELET VOLUME 9.8 fl (9.6-12.3); MONO # 1.2 10*3/uL (0.1-1.0); MONO % 7.4 % (3.0-9.0); NEUT # 13.3 10*3/uL (2.3-7.9); NEUT % 78.6 % (47.0-73.0); PLATELET COUNT AUTOMATED 299 10*3/uL (130-400); RED CELL DISTRI WIDTH 14.7 % (0-14.5); WHITE BLOOD COUNT 16.9 10*3/uL (4.8-10.8)
[2023-12-13] MEDS ORDERED: METOPROLOL TART50 M1 PO (15:58)
[2023-12-13] MEDS ORDERED: HYDR25T PO (15:59)
[2023-12-13] MEDS ORDERED: OZEMPIC1 MG/0.71 SQ (16:02)
[2023-12-13 16:10] LABS: ALKALINE PHOSPHATASE 120 U/L (46-116); BUN 21 mg/dl (9-23); CHLORIDE 98 mmol/L (98-107); CPK 39 U/L (34-171); POTASSIUM 3.2 mmol/L (3.4-5.1); SGPT/ALT 11 U/L (5-49)
[2023-12-13 16:43] LABS: BILIRUBIN Negative (Negative); BLOOD Negative (Negative); CLARITY Cloudy (Clear); COLOR Dark Yellow (Yellow); GLUCOSE 3+ (Negative); KETONE Negative (Negative); LEUKO ESTERASE 1+ (Negative); NITRITE Negative (Negative); PH 5.5 (4.5-8.0); SPECIFIC GRAVITY >= 1.030 (1.001-1.030)
[2023-12-13 16:53] LABS: BACTERIA 3+; WBC 41-50 wbc/hpf (0-5)
[2023-12-13] MEDS ORDERED: Ceftriaxone Sodium 1 GM/10 ML SYR IV ONE (17:20)
[2023-12-13] MEDS ORDERED: VIBRAMYCIN100 MG PO (17:20)
[2023-12-13 17:29] VITALS: BP 103/70
[2023-12-13] MEDS ORDERED: ONDANSETRON4 MG SL (17:46)
== END 2023-12-13 17:39 | disposition home or self-care (01) ==
LOC: ED 15:35
PROVIDERS: Physician Assistant Medical
DX: N39.0 Urinary tract infection, site not specified (principal); E86.0 Dehydration; I11.0 Hypertensive heart disease with heart failure; I50.9 Heart failure, unspecified; E11.9 Type 2 diabetes mellitus without complications; I48.91 Unspecified atrial fibrillation; Z88.5 Allergy status to narcotic agent; Z88.8 Allergy status to other drugs, medicaments and biological substances; Z98.890 Other specified postprocedural states; F17.200 Nicotine dependence, unspecified, uncomplicated

== ENCOUNTER 2024-01-27 12:53 | Emergency (ER) | payer OTHER ==
[~2024-01-27] VITALS: Ht 198.1 cm; Wt 145.1 kg
[~2024-01-27 12:53] MED LIST changes: +HYDR25T PO; +METOPROLOL TART50 M1 PO; +ONDANSETRON4 MG SL; +OZEMPIC1 MG/0.71 SQ; +VIBRAMYCIN100 MG PO
[2024-01-27 13:03] VITALS: BP 107/71
[2024-01-27] MEDS ORDERED: PREDNISONE20 M1 PO (13:25)
[2024-01-27] MEDS ORDERED: Acetaminophen/Hydrocodone 5 MG/325 MG TABLET PO ONE (13:30)
[2024-01-27] MEDS ORDERED: methylPREDNISolone sod succ 125 MG VIAL IM ONE (13:30)
== END 2024-01-27 13:43 | disposition home or self-care (01) ==
LOC: ED 12:53
DX: G89.29 Other chronic pain (principal); M79.641 Pain in right hand; M79.672 Pain in left foot; F17.200 Nicotine dependence, unspecified, uncomplicated; Z88.8 Allergy status to other drugs, medicaments and biological substances; Z88.6 Allergy status to analgesic agent; Z79.899 Other long term (current) drug therapy; Z79.2 Long term (current) use of antibiotics; Z79.4 Long term (current) use of insulin; Z98.890 Other specified postprocedural states

== ENCOUNTER 2025-03-28 15:27 | Emergency (ER) | payer OTHER ==
[~2025-03-28] VITALS: Ht 198.1 cm; Wt 144.2 kg
[~2025-03-28 15:27] MED LIST changes: +DOXYCYCLINE HY100 M3 PO; +PREDNISONE10 MG PO
[2025-03-28 15:49] VITALS: BP 124/62
[2025-03-28] MEDS ORDERED: Dexamethasone Sodium Phospha 20 MG/5 ML VIAL IV ONE (17:05)
[2025-03-28] MEDS ORDERED: Ondansetron Hydrochloride 4 MG/2 ML VIAL IV ONE (17:10)
[2025-03-28] MEDS ORDERED: diazePAM 5 MG TAB PO ONE ×2 (17:10→18:00)
[2025-03-28 17:20] LABS: BASO # 0.1 10*3/uL (0.0-0.1); BASO % 0.6 % (0.0-1.0); EOS # 0.2 10*3/uL (0.0-0.4); EOS % 1.1 % (1.0-4.0); MEAN CELL VOLUME 81.6 fl (80.0-94.0); MEAN CORPUSCULAR HGB 24.6 pg (27.0-31.0); MEAN PLATELET VOLUME 9.1 fl (9.6-12.3); MONO # 1.2 10*3/uL (0.1-1.0); MONO % 7.9 % (3.0-9.0); NEUT # 11.0 10*3/uL (2.3-7.9); NEUT % 73.2 % (47.0-73.0); NUCLEATED RED BLOOD CELL 0.0 % (0.0-0.0); NUCLEATED RED BLOOD CELL 0.0 10*3/uL (0.0-0.0); PLATELET COUNT AUTOMATED 267 10*3/uL (130-400); RED CELL DISTRI WIDTH 18.5 % (0-14.5)
[2025-03-28 17:53] LABS: BUN 18 mg/dl (9-23)
[2025-03-28] MEDS ORDERED: METHOCARBAMOL750 M1 PO (18:27)
[2025-03-28] MEDS ORDERED: PREDNISONE20 M1 PO (18:27)
[2025-03-28] MEDS ORDERED: Ondansetron4 MG PO (18:27)
[2025-03-28] MEDS ORDERED: PERCOCET 5-3251 EACH PO (18:27)
== END 2025-03-28 18:38 | disposition home or self-care (01) ==
LOC: ED 15:27
PROVIDERS: Emergency Medicine
DX: M54.16 Radiculopathy, lumbar region (principal); G62.9 Polyneuropathy, unspecified; E66.9 Obesity, unspecified; Z88.5 Allergy status to narcotic agent; Z88.8 Allergy status to other drugs, medicaments and biological substances; Z79.899 Other long term (current) drug therapy; Z79.4 Long term (current) use of insulin; Z79.84 Long term (current) use of oral hypoglycemic drugs; Z87.891 Personal history of nicotine dependence; Z68.30 Body mass index [BMI] 30.0-30.9, adult

== ENCOUNTER 2025-03-29 10:54 | Emergency (ER) | payer OTHER ==
[~2025-03-29] VITALS: Ht 198.1 cm; Wt 145.1 kg
[~2025-03-29 10:54] MED LIST changes: +METHOCARBAMOL750 M1 PO; +Ondansetron4 MG PO; +PERCOCET 5-3251 EACH PO
[2025-03-29 11:02] VITALS: BP 136/68
== END 2025-03-29 11:33 | disposition home or self-care (01) ==
LOC: ED 10:54
DX: G44.40 Drug-induced headache, not elsewhere classified, not intractable (principal); T40.2X5A Adverse effect of other opioids, initial encounter; Z88.6 Allergy status to analgesic agent; Z88.5 Allergy status to narcotic agent; Z88.8 Allergy status to other drugs, medicaments and biological substances; Z79.899 Other long term (current) drug therapy; Z79.84 Long term (current) use of oral hypoglycemic drugs; Z79.4 Long term (current) use of insulin; Z98.890 Other specified postprocedural states; Z87.891 Personal history of nicotine dependence; Y92.89 Other specified places as the place of occurrence of the external cause

== ENCOUNTER 2025-05-15 16:45 | Emergency (ER) | payer OTHER ==
[~2025-05-15] VITALS: Ht 198.1 cm; Wt 155.6 kg
[2025-05-15 19:37] LABS: MANUAL DIFF REFLEX YES; MEAN CELL VOLUME 83.0 fl (80.0-94.0); MEAN CORPUSCULAR HGB 24.6 pg (27.0-31.0); MEAN PLATELET VOLUME 9.8 fl (9.6-12.3); NUCLEATED RED BLOOD CELL 0.0 % (0.0-0.0); NUCLEATED RED BLOOD CELL 0.0 10*3/uL (0.0-0.0); PLATELET COUNT AUTOMATED 306 10*3/uL (130-400); RED CELL DISTRI WIDTH 18.6 % (0-14.5)
[2025-05-15 20:04] LABS: BUN 28 mg/dl (9-23)
[2025-05-15 20:14] LABS: BILIRUBIN Negative (Negative); BLOOD Negative (Negative); CLARITY Clear (Clear); COLOR Yellow (Yellow); KETONE Negative (Negative); LEUKO ESTERASE Negative (Negative); NITRITE Negative (Negative); PH 5.5 (4.5-8.0); SPECIFIC GRAVITY >= 1.030 (1.001-1.030); UROBILINOGEN 0.2 E.U./dl (0.0-1.0)
[2025-05-15 20:22] LABS: PLATELET SUFFICIENCY NORMAL (NORMAL)
[2025-05-15 20:26] LABS: MUCOUS 1+; WBC 0-2 wbc/hpf (0-5)
[2025-05-15] MEDS ORDERED: BUMETANIDE 1 MG/4 ML VIAL IV ONE (22:45)
[2025-05-15] MEDS ORDERED: INSULIN REGULAR, HUMAN 1 UNIT/0.01 ML SC ONE (22:45)
[2025-05-16] MEDS ORDERED: Ondansetron Hydrochloride 4 MG/2 ML VIAL IV ONE (02:10)
[2025-05-16 04:22] VITALS: BP 124/73
[2025-05-16] MEDS ORDERED: CEPHALEXIN500 M1 PO (07:29)
== END 2025-05-16 07:55 | disposition home or self-care (01) ==
LOC: ED 16:45
PROVIDERS: Internal Medicine
DX: L03.116 Cellulitis of left lower limb (principal); I11.0 Hypertensive heart disease with heart failure; I50.9 Heart failure, unspecified; E87.5 Hyperkalemia; D72.829 Elevated white blood cell count, unspecified; E11.65 Type 2 diabetes mellitus with hyperglycemia; F17.200 Nicotine dependence, unspecified, uncomplicated; Z98.890 Other specified postprocedural states; Z88.5 Allergy status to narcotic agent; Z88.8 Allergy status to other drugs, medicaments and biological substances; Z79.899 Other long term (current) drug therapy